=== PATIENT | female | born 1995 | race Caucasian/White ===

== ENCOUNTER 2018-05-27 19:09 | Emergency (ER) | payer OTHER, SELFPAY ==
[2018-05-27 19:14] VITALS: BP 138/93; PULSE 69; RESP 20; TEMP 36.6; O2SAT 98; BMI 21.9
--- NOTE | 2018-05-27 19:33 | ED.ARRPALP ---
HPI - Arrhythmia/Palpitations <JEREMY Sol - Last Filed: 05/27/18 21:03> General Chief Complaint: Arrhythmia/Palpitations Stated Complaint: left arm numbness x3 days Time Seen by Provider: 05/27/18 19:19 Source: patient Mode of arrival: ambulatory Limitations: no limitations History of Present Illness HPI narrative: Patient presents with chief complaint of palpitations. She states she has a history of benign cardiac murmur and has noted episodes of palpitations. One week ago she was running a half marathon and Noticed two episodes of palpitations and fatigue. She states she took several days off and then started running again. Three days ago she was running and noticed palpitations combined with left arm numbness that stopped when she stops running. She felt this again yesterday and felt pins and needles in her left hand while running. She stated that it happened again after she was done running yesterday. She states she felt pins and needles in her left hand today as well this morning and that returned tonight. This prompted her visit to the emergency department today. She states she was going to see a aerospace mechanic after her episodes of palpitations any way but she would to get evaluated today. She denies chance of . She denies any abdominal pain vomiting or diarrhea. She complains of slight nausea. She denies any chest pain. Related Data Home Medications Medication Instructions Recorded Confirmed [ control] #0 08/19/16 ferrous sulfate [Iron (ferrous 325 mg PO QDAY #0 08/19/16 sulfate)] vitamin B complex [B 1 tab PO QDAY #0 08/19/16 Complex-Vitamin B12] Previous Rx's Medication Instructions Recorded omeprazole 20 mg PO BID #28 cap 08/19/16 Allergies Allergy/AdvReac Type Severity Reaction Status Date / Time No Known Drug Allergies Allergy Verified 05/27/18 19:11 Review of Systems <JEREMY Sol - Last Filed: 05/27/18 21:03> Review of Systems GENERAL: Denies chills, fatigue, malaise, fever, sweats. HEENT: Denies sinus pain, ear pain, sore throat, difficulty swallowing, dizziness. RESPIRATORY: Denies dyspnea, cough, wheezing, hemoptysis, sputum. CARDIOVASCULAR: See HPI GASTROINTESTINAL: see HPI : Denies dysuria, frequency, incontinence, hematuria, urinary retention. MUSCULOSKELETAL: denies weakness, joint pain, or bony pain SKIN: Denies rash, skin lesions, or other NEUROLOGIC: Denies weakness, headache, numbness, change in speech, confusion, seizures, incoordination. PSYCHIATRIC: No concerning psychosocial issues. 12 point review of systems is negative except for those stated above Exam <JEREMY Sol - Last Filed: 05/27/18 21:03> Narrative Exam Narrative: GENERAL: This is a well-nourished, well-developed patient, sitting on side of bed Appears anxious. HEAD: Atraumatic. Normocephalic. No temporal or scalp tenderness. EYES: Pupils equal round and reactive. Extraocular motions intact. No scleral icterus. No injection or drainage. ENT: Nose without bleeding, purulent drainage or septal hematoma. Throat without erythema, tonsillar hypertrophy or exudate. Uvula midline. Airway patent. NECK: Trachea midline. No JVD or lymphadenopathy. Supple, nontender, no meningeal signs. CARDIOVASCULAR: Regular rate and rhythm a slight systolic murmur RESPIRATORY: Clear to auscultation. Breath sounds equal bilaterally. No wheezes, rales, or rhonchi. GASTROINTESTINAL: Abdomen soft, non-tender, nondistended. No hepato-splenomegaly, or palpable masses. No guarding. EXTREMITIES: No clubbing, cyanosis, or edema. No joint tenderness, effusion, or edema noted. BACK: Nontender without deformity or crepitance. No flank tenderness. NEURO: AOx3. SKIN: No rash or erythema. Initial Vital Signs Initial Vital Signs: Vital Signs Temperature 97.8 F 05/27/18 19:14 Pulse Rate 69 05/27/18 19:14 Respiratory Rate 20 05/27/18 19:14 Blood Pressure 138/93 H 05/27/18 19:14 Pulse Oximetry 98 05/27/18 19:14 <Harvey Hayes DO - Last Filed: 05/27/18 22:26> Initial Vital Signs Initial Vital Signs: Vital Signs Temperature 97.8 F 05/27/18 19:14 Pulse Rate 69 05/27/18 19:14 Respiratory Rate 20 05/27/18 19:14 Blood Pressure 138/93 H 05/27/18 19:14 Pulse Oximetry 98 05/27/18 19:14 Course <JEREMY Sol - Last Filed: 05/27/18 21:03> Orders Ordered: ED Orders 05/27/18 19:28 EKG-12 Lead Stat 05/27/18 20:15 CBC [Complete Blood Count AUTO DIFF] Stat CMP [Comprehensive Metabolic Panel] Stat Reevaluation(s) Reevaluation #1: patient resting in bed. No apparent distress at this time. Patient denies arm numbness. Time: 20:10 Reevaluation #2: Discussed lab results with patient. Patient still denies current left arm numbness. Discussed with patient that I would like her to receive follow-up regarding her palpitations and associated left arm numbness. Patient appears upset that I do not know the direct cause of her palpitations while she was running last week. Time: 20:50 Vital Signs - 8 hr 05/27/18 19:14 05/27/18 20:49 Temperature 97.8 F Pulse Rate 69 52 L Respiratory Rate 20 14 Blood Pressure 138/93 H Blood Pressure [Left Arm] 117/72 Pulse Oximetry 98 98 <Harvey Hayes DO - Last Filed: 05/27/18 22:26> Orders Ordered: ED Orders 05/27/18 19:28 EKG-12 Lead Stat 05/27/18 20:15 CBC [Complete Blood Count AUTO DIFF] Stat CMP [Comprehensive Metabolic Panel] Stat Vital Signs - 8 hr 05/27/18 19:14 05/27/18 20:49 Temperature 97.8 F Pulse Rate 69 52 L Respiratory Rate 20 14 Blood Pressure 138/93 H Blood Pressure [Left Arm] 117/72 Pulse Oximetry 98 98 MDM - Arrhythmia/Palpitations <JEREMY Sol - Last Filed: 05/27/18 21:03> Differential Diagnosis Differential diagnosis: Likely palpitations, anxiety and ventricular premature beats Lab Data Attestation: I reviewed the patient's lab results. Result diagrams: 05/27/18 20:15 05/27/18 20:15 Lab Results 05/27/18 05/27/18 Range/Units 20:15 20:15 WBC 6.4 (4.5-11.0) X10^3/uL RBC 4.26 (4.0-5.2) X10^6/uL Hgb 13.6 (12.0-16.0) g/dL Hct 39.8 (36-46) % MCV 93.4 (80-100) fL MCH 32.0 (26-34) PG MCHC 34.2 (30-36) % RDW 13.5 (11.6-14.8) % Plt Count 201 (150-400) X10^3/uL Neut % (Auto) 48.8 L (50-75) % Lymph % (Auto) 42.5 H (25-40) % [place] % (Auto) 6.8 (3-14) % Eos % (Auto) 1.6 L (2-4) % Baso % (Auto) 0.3 (0-2) % Neut # (Auto) 3100 (5773-1420) /uL Sodium 142 (137-145) mmol/L Potassium 3.6 (3.4-5.1) mmol/L Chloride 102 (98-107) mmol/L Carbon Dioxide 29 (22-32) mmol/L BUN 16 (7-17) mg/dL Creatinine 0.70 (0.52-1.04) mg/dL Estimated GFR > 60.0 (>60) mL/min BUN/Creatinine Ratio 22.9 H (6-22) Glucose 110 H (70-100) mg/dL Calcium 9.4 (8.4-10.2) mg/dL Total Bilirubin 0.5 (0.2-1.3) mg/dL AST 32 (14-36) IU/L ALT 30 (9-52) IU/L Alkaline Phosphatase 50 (38-126) U/L Total Protein 6.8 (6.3-8.2) g/dL Albumin 4.4 (3.5-5.0) g/dL Globulin 2.4 (1.7-4.1) g/dL Albumin/Globulin Ratio 1.8 (1.0-2.8) Point of Care Testing Test Results Negative Urine Dip Bedside Urine Glucose Negative Bedside Urine Bilirubin - Negative Bedside Urine Ketone - Negative Urine Specific [place] 1.020 Bedside Urine Occult Blood - Negative Bedside Urine pH 7.0 Bedside Urine Protein - Negative Bedside Urine Urobilinogen - Negative Bedside Urine Nitrite - Negative Bedside Urine Leukocytes - Negative Esterase ECG Data Attestation: I personally reviewed and interpreted this ECG as follows: Interpretation: Sinus bradycardia. Ventricular rate 59. no ectopy noted. No ST elevation depression noted. MDM Narrative Medical decision making narrative: Patient presents with chief complaint of palpitations during exercise and transient left pins and needles. She had a normal EKG, normal CBC and CMP. I encouraged her to follow up with her primary care provider, maintain adequate hydration, and use [id number] conservative measures for her arm pain. Given her palpitations and associated left arm numbness, I think she might benefit from Holter monitor. Discussed return precautions to the emergency department. Patient no questions or concerns upon discharge. I gave her copy of her labs as well as a list of local PCPs who are accepting new patients. <Harvey Hayes, DO - Last Filed: 05/27/18 22:26> Lab Data Lab Results 05/27/18 05/27/18 Range/Units 20:15 20:15 WBC 6.4 (4.5-11.0) X10^3/uL RBC 4.26 (4.0-5.2) X10^6/uL Hgb 13.6 (12.0-16.0) g/dL Hct 39.8 (36-46) % MCV 93.4 (80-100) fL MCH 32.0 (26-34) PG MCHC 34.2 (30-36) % RDW 13.5 (11.6-14.8) % Plt Count 201 (150-400) X10^3/uL Neut % (Auto) 48.8 L (50-75) % Lymph % (Auto) 42.5 H (25-40) % [place] % (Auto) 6.8 (3-14) % Eos % (Auto) 1.6 L (2-4) % Baso % (Auto) 0.3 (0-2) % Neut # (Auto) 3100 (5605-2733) /uL Sodium 142 (137-145) mmol/L Potassium 3.6 (3.4-5.1) mmol/L Chloride 102 (98-107) mmol/L Carbon Dioxide 29 (22-32) mmol/L BUN 16 (7-17) mg/dL Creatinine 0.70 (0.52-1.04) mg/dL Estimated GFR > 60.0 (>60) mL/min BUN/Creatinine Ratio 22.9 H (6-22) Glucose 110 H (70-100) mg/dL Calcium 9.4 (8.4-10.2) mg/dL Total Bilirubin 0.5 (0.2-1.3) mg/dL AST 32 (14-36) IU/L ALT 30 (9-52) IU/L Alkaline Phosphatase 50 (38-126) U/L Total Protein 6.8 (6.3-8.2) g/dL Albumin 4.4 (3.5-5.0) g/dL Globulin 2.4 (1.7-4.1) g/dL Albumin/Globulin Ratio 1.8 (1.0-2.8) Point of Care Testing Test Results Negative Urine Dip Bedside Urine Glucose Negative Bedside Urine Bilirubin - Negative Bedside Urine Ketone - Negative Urine Specific [place] 1.020 Bedside Urine Occult Blood - Negative Bedside Urine pH 7.0 Bedside Urine Protein - Negative Bedside Urine Urobilinogen - Negative Bedside Urine Nitrite - Negative Bedside Urine Leukocytes - Negative Esterase Discharge Plan Departure Patient Disposition: Home Clinical Impression: Palpitations Discharge Date/Time: 05/27/18 21:01 Interventions: ED Discharge Assessment Last Done: 05/27/18 20:59 Instructions: DI for Palpitations Activity Restrictions/Additional Instructions: Please follow-up with your primary care provider regarding her palpitations. Your EKG as well as your lab work looks good today. You can use conservative measures for your arm pain including rest ice compression elevation as well as nhmd-zjo-[id number] pain medications as needed and able. Prescriptions: No Action ferrous sulfate [Iron (ferrous sulfate)] 325 MG tablet 325 mg PO QDAY Qty: 0 RF: 0 [ control] Qty: 0 RF: 0 vitamin B complex [B Complex-Vitamin B12] 1 EACH tablet 1 tab PO QDAY Qty: 0 RF: 0 omeprazole 20 MG capsule,delayed release(DR/EC) 20 mg PO BID Qty: 28 RF: 0 <Harvey Hayes DO - Last Filed: 05/27/18 22:26> Cosign ED Attending Marquisature Attestation: I was available for consultation during this patient's emergency department encounter
--- NOTE | 2018-05-27 19:38 | ED_ITS ---
HPI - Arrhythmia/Palpitations <JEREMY Sol - Last Filed: 05/27/18 21:03> General Chief Complaint: Arrhythmia/Palpitations Stated Complaint: left arm numbness x3 days Time Seen by Provider: 05/27/18 19:19 Source: patient Mode of arrival: ambulatory Limitations: no limitations History of Present Illness HPI narrative: Patient presents with chief complaint of palpitations. She states she has a history of benign cardiac murmur and has noted episodes of palpitations. One week ago she was running a half marathon and Noticed two episodes of palpitations and fatigue. She states she took several days off and then started running again. Three days ago she was running and noticed palpitations combined with left arm numbness that stopped when she stops running. She felt this again yesterday and felt pins and needles in her left hand while running. She stated that it happened again after she was done running yesterday. She states she felt pins and needles in her left hand today as well this morning and that returned tonight. This prompted her visit to the emergency department today. She states she was going to see a flanging roll operator after her episodes of palpitations any way but she would to get evaluated today. She denies chance of . She denies any abdominal pain vomiting or diarrhea. She complains of slight nausea. She denies any chest pain. Related Data Home Medications Medication Instructions Recorded Confirmed [ control] #0 08/19/16 ferrous sulfate [Iron (ferrous 325 mg PO QDAY #0 08/19/16 sulfate)] vitamin B complex [B 1 tab PO QDAY #0 08/19/16 Complex-Vitamin B12] Previous Rx's Medication Instructions Recorded omeprazole 20 mg PO BID #28 cap 08/19/16 Allergies Allergy/AdvReac Type Severity Reaction Status Date / Time No Known Drug Allergies Allergy Verified 05/27/18 19:11 Review of Systems <JEREMY Sol - Last Filed: 05/27/18 21:03> Review of Systems GENERAL: Denies chills, fatigue, malaise, fever, sweats. HEENT: Denies sinus pain, ear pain, sore throat, difficulty swallowing, dizziness. RESPIRATORY: Denies dyspnea, cough, wheezing, hemoptysis, sputum. CARDIOVASCULAR: See HPI GASTROINTESTINAL: see HPI : Denies dysuria, frequency, incontinence, hematuria, urinary retention. MUSCULOSKELETAL: denies weakness, joint pain, or bony pain SKIN: Denies rash, skin lesions, or other NEUROLOGIC: Denies weakness, headache, numbness, change in speech, confusion, seizures, incoordination. PSYCHIATRIC: No concerning psychosocial issues. 12 point review of systems is negative except for those stated above Exam <JEREMY Sol - Last Filed: 05/27/18 21:03> Narrative Exam Narrative: GENERAL: This is a well-nourished, well-developed patient, sitting on side of bed Appears anxious. HEAD: Atraumatic. Normocephalic. No temporal or scalp tenderness. EYES: Pupils equal round and reactive. Extraocular motions intact. No scleral icterus. No injection or drainage. ENT: Nose without bleeding, purulent drainage or septal hematoma. Throat without erythema, tonsillar hypertrophy or exudate. Uvula midline. Airway patent. NECK: Trachea midline. No JVD or lymphadenopathy. Supple, nontender, no meningeal signs. CARDIOVASCULAR: Regular rate and rhythm a slight systolic murmur RESPIRATORY: Clear to auscultation. Breath sounds equal bilaterally. No wheezes , rales, or rhonchi. GASTROINTESTINAL: Abdomen soft, non-tender, nondistended. No hepato-splenomegaly , or palpable masses. No guarding. EXTREMITIES: No clubbing, cyanosis, or edema. No joint tenderness, effusion, or edema noted. BACK: Nontender without deformity or crepitance. No flank tenderness. NEURO: AOx3. SKIN: No rash or erythema. Initial Vital Signs Initial Vital Signs: Vital Signs Temperature 97.8 F 05/27/18 19:14 Pulse Rate 69 05/27/18 19:14 Respiratory Rate 20 05/27/18 19:14 Blood Pressure 138/93 H 05/27/18 19:14 Pulse Oximetry 98 05/27/18 19:14 <Harvey Hayes DO - Last Filed: 05/27/18 22:26> Initial Vital Signs Initial Vital Signs: Vital Signs Temperature 97.8 F 05/27/18 19:14 Pulse Rate 69 05/27/18 19:14 Respiratory Rate 20 05/27/18 19:14 Blood Pressure 138/93 H 05/27/18 19:14 Pulse Oximetry 98 05/27/18 19:14 Course <JEREMY Sol - Last Filed: 05/27/18 21:03> Orders Ordered: ED Orders 05/27/18 19:28 EKG-12 Lead Stat 05/27/18 20:15 CBC [Complete Blood Count AUTO DIFF] Stat CMP [Comprehensive Metabolic Panel] Stat Reevaluation(s) Reevaluation #1: patient resting in bed. No apparent distress at this time. Patient denies arm numbness. Time: 20:10 Reevaluation #2: Discussed lab results with patient. Patient still denies current left arm numbness. Discussed with patient that I would like her to receive follow-up regarding her palpitations and associated left arm numbness. Patient appears upset that I do not know the direct cause of her palpitations while she was running last week. Time: 20:50 Vital Signs - 8 hr 05/27/18 19:14 05/27/18 20:49 Temperature 97.8 F Pulse Rate 69 52 L Respiratory Rate 20 14 Blood Pressure 138/93 H Blood Pressure [Left Arm] 117/72 Pulse Oximetry 98 98 <Harvey Hayes DO - Last Filed: 05/27/18 22:26> Orders Ordered: ED Orders 05/27/18 19:28 EKG-12 Lead Stat 05/27/18 20:15 CBC [Complete Blood Count AUTO DIFF] Stat CMP [Comprehensive Metabolic Panel] Stat Vital Signs - 8 hr 05/27/18 19:14 05/27/18 20:49 Temperature 97.8 F Pulse Rate 69 52 L Respiratory Rate 20 14 Blood Pressure 138/93 H Blood Pressure [Left Arm] 117/72 Pulse Oximetry 98 98 MDM - Arrhythmia/Palpitations <JEREMY Sol - Last Filed: 05/27/18 21:03> Differential Diagnosis Differential diagnosis: Likely palpitations, anxiety and ventricular premature beats Lab Data Attestation: I reviewed the patient's lab results. Result diagrams: 05/27/18 20:15 05/27/18 20:15 Lab Results 05/27/18 05/27/18 Range/Units 20:15 20:15 WBC 6.4 (4.5-11.0) X10^3/uL RBC 4.26 (4.0-5.2) X10^6/uL Hgb 13.6 (12.0-16.0) g/dL Hct 39.8 (36-46) % MCV 93.4 (80-100) fL MCH 32.0 (26-34) PG MCHC 34.2 (30-36) % RDW 13.5 (11.6-14.8) % Plt Count 201 (150-400) X10^3/uL Neut % (Auto) 48.8 L (50-75) % Lymph % (Auto) 42.5 H (25-40) % [place] % (Auto) 6.8 (3-14) % Eos % (Auto) 1.6 L (2-4) % Baso % (Auto) 0.3 (0-2) % Neut # (Auto) 3100 (2434-8381) /uL Sodium 142 (137-145) mmol/L Potassium 3.6 (3.4-5.1) mmol/L Chloride 102 (98-107) mmol/L Carbon Dioxide 29 (22-32) mmol/L BUN 16 (7-17) mg/dL Creatinine 0.70 (0.52-1.04) mg/dL Estimated GFR > 60.0 (>60) mL/min BUN/Creatinine Ratio 22.9 H (6-22) Glucose 110 H (70-100) mg/dL Calcium 9.4 (8.4-10.2) mg/dL Total Bilirubin 0.5 (0.2-1.3) mg/dL AST 32 (14-36) IU/L ALT 30 (9-52) IU/L Alkaline Phosphatase 50 (38-126) U/L Total Protein 6.8 (6.3-8.2) g/dL Albumin 4.4 (3.5-5.0) g/dL Globulin 2.4 (1.7-4.1) g/dL Albumin/Globulin Ratio 1.8 (1.0-2.8) Point of Care Testing Test Results Negative Urine Dip Bedside Urine Glucose Negative Bedside Urine Bilirubin - Negative Bedside Urine Ketone - Negative Urine Specific [place] 1.020 Bedside Urine Occult Blood - Negative Bedside Urine pH 7.0 Bedside Urine Protein - Negative Bedside Urine Urobilinogen - Negative Bedside Urine Nitrite - Negative Bedside Urine Leukocytes - Negative Esterase ECG Data Attestation: I personally reviewed and interpreted this ECG as follows: Interpretation: Sinus bradycardia. Ventricular rate 59. no ectopy noted. No ST elevation depression noted. MDM Narrative Medical decision making narrative: Patient presents with chief complaint of palpitations during exercise and transient left pins and needles. She had a normal EKG, normal CBC and CMP. I encouraged her to follow up with her primary care provider, maintain adequate hydration, and use [id number] conservative measures for her arm pain. Given her palpitations and associated left arm numbness, I think she might benefit from Holter monitor. Discussed return precautions to the emergency department. Patient no questions or concerns upon discharge. I gave her copy of her labs as well as a list of local PCPs who are accepting new patients. <Harvey Hayes, DO - Last Filed: 05/27/18 22:26> Lab Data Lab Results 05/27/18 05/27/18 Range/Units 20:15 20:15 WBC 6.4 (4.5-11.0) X10^3/uL RBC 4.26 (4.0-5.2) X10^6/uL Hgb 13.6 (12.0-16.0) g/dL Hct 39.8 (36-46) % MCV 93.4 (80-100) fL MCH 32.0 (26-34) PG MCHC 34.2 (30-36) % RDW 13.5 (11.6-14.8) % Plt Count 201 (150-400) X10^3/uL Neut % (Auto) 48.8 L (50-75) % Lymph % (Auto) 42.5 H (25-40) % [place] % (Auto) 6.8 (3-14) % Eos % (Auto) 1.6 L (2-4) % Baso % (Auto) 0.3 (0-2) % Neut # (Auto) 3100 (5388-1550) /uL Sodium 142 (137-145) mmol/L Potassium 3.6 (3.4-5.1) mmol/L Chloride 102 (98-107) mmol/L Carbon Dioxide 29 (22-32) mmol/L BUN 16 (7-17) mg/dL Creatinine 0.70 (0.52-1.04) mg/dL Estimated GFR > 60.0 (>60) mL/min BUN/Creatinine Ratio 22.9 H (6-22) Glucose 110 H (70-100) mg/dL Calcium 9.4 (8.4-10.2) mg/dL Total Bilirubin 0.5 (0.2-1.3) mg/dL AST 32 (14-36) IU/L ALT 30 (9-52) IU/L Alkaline Phosphatase 50 (38-126) U/L Total Protein 6.8 (6.3-8.2) g/dL Albumin 4.4 (3.5-5.0) g/dL Globulin 2.4 (1.7-4.1) g/dL Albumin/Globulin Ratio 1.8 (1.0-2.8) Point of Care Testing Test Results Negative Urine Dip Bedside Urine Glucose Negative Bedside Urine Bilirubin - Negative Bedside Urine Ketone - Negative Urine Specific [place] 1.020 Bedside Urine Occult Blood - Negative Bedside Urine pH 7.0 Bedside Urine Protein - Negative Bedside Urine Urobilinogen - Negative Bedside Urine Nitrite - Negative Bedside Urine Leukocytes - Negative Esterase Discharge Plan Departure Patient Disposition: Home Clinical Impression: Palpitations Discharge Date/Time: 05/27/18 21:01 Interventions: ED Discharge Assessment Last Done: 05/27/18 20:59 Instructions: DI for Palpitations Activity Restrictions/Additional Instructions: Please follow-up with your primary care provider regarding her palpitations. Your EKG as well as your lab work looks good today. You can use conservative measures for your arm pain including rest ice compression elevation as well as touq-sti-jwkvwnn pain medications as needed and able. Prescriptions: No Action ferrous sulfate [Iron (ferrous sulfate)] 325 MG tablet 325 mg PO QDAY Qty: 0 RF: 0 [ control] Qty: 0 RF: 0 vitamin B complex [B Complex-Vitamin B12] 1 EACH tablet 1 tab PO QDAY Qty: 0 RF: 0 omeprazole 20 MG capsule,delayed release(DR/EC) 20 mg PO BID Qty: 28 RF: 0 <Harvey Hayes DO - Last Filed: 05/27/18 22:26> Cosign ED Attending Marquisature Attestation: I was available for consultation during this patient's emergency department encounter
[2018-05-27 20:19] LABS: Add Manual Diff / Slide Review NO; Basophils Percent Auto 0.3 % (0-2); Eosinophils Percent Auto 1.6 % (2-4); Hematocrit 39.8 % (36-46); Hemoglobin 13.6 g/dL (12.0-16.0); Lymphocytes Percent Auto 42.5 % (25-40); Mean Corpuscular HGB Conc 34.2 % (30-36); Mean Corpuscular Volume 93.4 fL (80-100); Monocytes Percent Auto 6.8 % (3-14); Neutrophils Absolute Auto 3100 /uL (3000-5900); Neutrophils Percent Auto 48.8 % (50-75); Platelet Count 201 X10^3/uL (150-400); Red Blood Cell Count 4.26 X10^6/uL (4.0-5.2); Red Cell Distribution Width 13.5 % (11.6-14.8); White Blood Cell Count 6.4 X10^3/uL (4.5-11.0)
--- NOTE | 2018-05-27 20:26 | PC.NURSE ---
palpatations, skips a beat, lt arm numbness/tingling, occurred during running race, intermittent x1wk after, onset tonight while at rest, denies sx at time of exam, sinus lashawn on monitor, pulses strong/equal, lungs clear/equal, abd nontender, denies cp/soa/nausea/vomiting/diarrhea/dysuria/fever/trauma or other illness
[2018-05-27 20:32] LABS: Alanine Aminotransferase 30 IU/L (9-52); Albumin 4.4 g/dL (3.5-5.0); Albumin Globulin Ratio 1.8 (1.0-2.8); Alkaline Phosphatase 50 U/L (38-126); Aspartate Aminotransferase 32 IU/L (14-36); BUN Creatinine Ratio 22.9 (6-22); Bilirubin Total 0.5 mg/dL (0.2-1.3); Blood Urea Nitrogen 16 mg/dL (7-17); Calcium 9.4 mg/dL (8.4-10.2); Carbon Dioxide 29 mmol/L (22-32); Chloride 102 mmol/L (98-107); Estimated Glomerular Filt Rate > 60.0 mL/min (>60); Globulin 2.4 g/dL (1.7-4.1); Glucose 110 mg/dL (70-100); HEMOLYSIS < 15 (0-50); Potassium 3.6 mmol/L (3.4-5.1); Sodium 142 mmol/L (137-145); Total Protein 6.8 g/dL (6.3-8.2)
[2018-05-27 20:49] VITALS: BP 117/72; PULSE 52; RESP 14; O2SAT 98
--- NOTE | 2018-05-31 17:53 | PC.NURSE ---
Pt feeling good,pt going to follow up with professor of floriculture. Pt has no suggestions for improvments
== END 2018-05-27 21:01 | disposition home or self-care (01) ==
PROVIDERS: Emergency Provider Nurse Practitioner Family; PCP Physician Assistant Medical
DX: R00.2 Palpitations (principal)
CPT/HCPCS: 80053; 81003; 81025; 85025; 93005; 99282; 99284

== ENCOUNTER 2019-08-22 22:02 | Emergency (ER) | payer OTHER, SELFPAY ==
[2019-08-22 22:10] VITALS: BP 117/68; PULSE 97; RESP 17; TEMP 36.4; O2SAT 99; BMI 21.2
--- NOTE | 2019-08-22 23:11 | ED_ITS ---
HPI - Nausea/Vomiting/Diarrhea General Chief complaint: Nausea/Vomiting/Diarrhea Stated complaint: vomiting, diarrhea Time Seen by Provider: 08/22/19 22:05 Source: patient and family Mode of arrival: Family Vehicle Limitations: no limitations History of Present Illness HPI Narrative: 24-year-old female nonsmoker with noncontributory medical history presents with a chief complaint of a sudden onset of nausea with some epigastric cramping and discomfort followed by 1 episode of diarrhea prior to her arrival. She felt tremendous improvement after the vomiting and diarrhea and in fact has minimal symptoms on her presentation. She denies any fever but has had chills ever since she got here. She denies any bad food or recent travel. She was on antibiotics about a month ago but otherwise has little in the way of risk. She has a complaint of a similar episode a few weeks ago which did not have associated vomiting. She denies any family history of the same MD complaint: nausea, vomiting, diarrhea and abdominal pain Onset (ago): hour(s) Description of Vomiting: food contents and resolved Description of Diarrhea: watery and resolved Associated Abdominal Pain: Yes Location of pain: periumbilical Radiation: diffuse Severity: moderate Quality: cramping Pain Consistency: now resolved Relieving factors: none Exacerbating factors: none Associated symptoms: denies other symptoms Related Data Home Medications Medication Instructions Recorded Confirmed [ control] #0 08/19/16 ferrous sulfate [Iron (ferrous 325 mg PO QDAY #0 08/19/16 sulfate)] vitamin B complex [B 1 tab PO QDAY #0 08/19/16 Complex-Vitamin B12] Previous Rx's Medication Instructions Recorded omeprazole 20 mg PO BID #28 cap 08/19/16 ondansetron 4 mg PO TID-QID PRN #10 tab 08/23/19 Allergies Allergy/AdvReac Type Severity Reaction Status Date / Time No Known Drug Allergies Allergy Verified 05/27/18 19:11 Review of Systems Constitutional Constitutional: Denies chills, Denies fatigue, Denies fever(s), Denies frequent falls, Denies lethargy and Denies weakness Eyes Eyes: Denies change in vision, Denies eye discharge, Denies irritation and Denies loss of vision ENT Ears, Nose, Mouth, and Throat: Denies change in voice, Denies dizziness, Denies neck pain, Denies sore throat and Denies throat swelling Cardiovascular Cardiovascular: Denies chest pain, Denies irregular heart rhythm, Denies lightheadedness, Denies palpitations, Denies dyspnea, Denies dyspnea on exertion and Denies orthopnea Respiratory Respiratory: Denies cough, Denies dyspnea, Denies dyspnea on exertion and Denies wheezing Gastrointestinal Gastrointestinal: Reports abdominal pain, Denies change in bowel habits, Reports diarrhea, Reports nausea and Reports vomiting Genitourinary Genitourinary: Denies hematuria, Denies flank pain, Denies urinary incontinence and Denies urinary urgency Musculoskeletal Musculoskeletal: Denies back pain, Denies muscle weakness, Denies neck pain, Denies numbness and Denies tingling Integumentary/Breasts Skin/Breast: Denies pruritus, Denies erythema, Denies rash and Denies wounds Neurologic Neurologic: Denies behavioral changes, Denies confusion, Denies dizziness, Denies frequent falls, Denies loss of vision, Denies numbness, Denies tingling and Denies weakness Psychiatric Psychiatric: Denies anxiety, Denies behavioral changes, Denies confusion, Denies depression, Denies homicidal ideation and Denies suicidal ideation Endocrine Endocrine: Denies fatigue, Denies flushing and Denies palpitations Hematologic/Lymphatic Hematologic/Lymphatic: Denies easy bruising Allergic/Immunologic Allergic/Immunologic: Denies urticaria, Denies throat swelling and Denies wheezing Patient History Social History Smoking Status: Never smoker Smoking Status: Never smoker alcohol intake frequency: holidays/special occasions only Substance Use Type: does not use Exam Narrative Exam Narrative: GENERAL: [24] year old patient appears stated age. Well- nourished, well-developed patient, in mild distress. HEAD: Atraumatic. Normocephalic. EYES: Pupils equal round and reactive. Extraocular motions intact. No scleral icterus. No injection or drainage. ENT: Nose without bleeding, purulent drainage. Throat without erythema, tonsillar hypertrophy or exudate. Airway patent. NECK: Trachea midline. Non tender CARDIOVASCULAR: Regular rate and rhythm without murmurs, gallops, or rubs. RESPIRATORY: Clear to auscultation. Breath sounds equal bilaterally. No wheezes, rales, or rhonchi. GASTROINTESTINAL: Abdomen soft, non-tender, nondistended. EXTREMITIES: No edema or joint tenderness. BACK: Nontender without deformity or crepitance. No flank tenderness. NEURO: AOx3. SKIN: No rash or erythema of visible areas Initial Vital Signs Initial Vital Signs: Vital Signs Temperature 97.6 F 08/22/19 22:10 Pulse Rate 97 H 08/22/19 22:10 Respiratory Rate 17 08/22/19 22:10 Blood Pressure 117/68 08/22/19 22:10 Pulse Oximetry 99 08/22/19 22:10 Course Orders Ordered: ED Orders 08/22/19 23:30 XR acute abdomen series Stat Ictotest Urine Stat Urine Microscopic Stat 08/22/19 23:46 Complete Blood Count AUTO DIFF Stat Comprehensive Metabolic Panel Stat Discontinued Medications Sodium Chloride (Normal Saline 0.9%) 1,000 mls @ 1,000 mls/hr IV BOLUS ONE Stop: 08/23/19 00:27 Last Admin: 08/22/19 23:50 Dose: 1,000 mls/hr Documented by: ALESHIA Ondansetron HCl (Zofran) 4 mg IV NOW ONE Stop: 08/22/19 23:29 Last Admin: 08/22/19 23:50 Dose: 4 mg Documented by: ALESHIA Ondansetron HCl (Zofran Odt Prepack) 1 bottle MISC SEEINSTR ONE Stop: 08/23/19 00:18 Last Admin: 08/23/19 00:25 Dose: 1 bottle Documented by: ALESHIA Vital Signs Vital signs: Vital Signs - 8 hr 08/22/19 22:10 Temperature 97.6 F Pulse Rate 97 H Respiratory Rate 17 Blood Pressure 117/68 Pulse Oximetry 99 MDM - Nausea/Vomiting/Diarrhea Lab Data Result diagrams: 08/22/19 23:46 08/22/19 23:46 Labs: Lab Results 08/22/19 08/22/19 08/22/19 Range/Units 23:30 23:46 23:46 WBC 10.2 (4.5-11.0) X10^3/uL RBC 4.93 (4.0-5.2) X10^6/uL Hgb 15.5 (12.0-16.0) g/dL Hct 45.2 (36-46) % MCV 91.7 (80-100) fL MCH 31.4 (26-34) PG MCHC 34.2 (30-36) % RDW 13.2 (11.6-14.8) % Plt Count 198 (150-400) X10^3/uL Neut % (Auto) 88.2 H (50-75) % Lymph % (Auto) 6.5 L (25-40) % [place] % (Auto) 4.5 (3-14) % Eos % (Auto) 0.5 L (2-4) % Baso % (Auto) 0.3 (0-2) % Neut # (Auto) 9000 H (6842-0097) /uL Lymph # (Auto) 700 L (6527-7970) /uL [place] # (Auto) 500 (0-900) /uL Eos # (Auto) 100 (0-450) /uL Baso # (Auto) 0 (0-100) /uL Sodium 136 L (137-145) mmol/L Potassium 4.0 (3.4-5.1) mmol/L Chloride 101 (98-107) mmol/L Carbon Dioxide 25 (22-32) mmol/L BUN 18 H (7-17) mg/dL Creatinine 0.60 (0.52-1.04) mg/dL Estimated GFR > 60.0 (>60) mL/min BUN/Creatinine Ratio 30.0 H (6-22) Glucose 105 H (70-100) mg/dL Calcium 9.3 (8.4-10.2) mg/dL Total Bilirubin 0.8 (0.2-1.3) mg/dL AST 26 (14-36) IU/L ALT 16 (<35) IU/L Alkaline Phosphatase 71 (38-126) U/L Total Protein 7.2 (6.3-8.2) g/dL Albumin 4.6 (3.5-5.0) g/dL Globulin 2.6 (1.7-4.1) g/dL Albumin/Globulin Ratio 1.8 (1.0-2.8) Urine Ictotest Negative (Negative) Urine RBC None seen (0-5/HPF) Urine WBC 1-5/hpf (0-5/HPF) Ur Squamous Epith Cells >30 /hpf H (0-5/HPF) Urine Bacteria Many (>30) H (None) Ur Culture Indicated? Cult not indicated Micro UA Comment * Point of Care Testing Test Results Negative Urine Dip Bedside Urine Glucose Negative Bedside Urine Bilirubin + 1 Bedside Urine Ketone ++ 40 Urine Specific [place] 1.015 Bedside Urine Occult Blood - Negative Bedside Urine pH 6.0 Bedside Urine Protein + 30 Bedside Urine Urobilinogen +/- 1mg Bedside Urine Nitrite - Negative Bedside Urine Leukocytes + 70 Esterase Imaging Data Abdominal x-ray: Radiologist's Impression: Nonspecific bowel gas pattern MDM Narrative Medical decision making narrative: Multiple etiologies for patient's symptoms considered including: [Enteritis versus gastroenteritis versus UTI versus bowel obstruction versus other] Patient's symptoms improved or duration of stay with above-stated therapies. Findings and discharge diagnosis discussed with patient/family followed by verbalization of understanding Return precautions discussed with patient/family whom verbalize understanding. Discharge Plan Departure Patient Disposition: Home Clinical Impression: Gastroenteritis Activity Restrictions/Additional Instructions: *You have been diagnosed with [UTI, resolved nausea, vomiting and diarrhea] *What to do: *Take medications as directed *Follow up with your primary care provider in 2-3 days, call for an appointment. Let them know you were seen in the Emergency Department and that we ask that you be seen in follow up *Return to ER if you should have any new, worsening or concerning symptoms Prescriptions: New ondansetron 4 mg tablet,disintegrating 4 mg PO TID-QID PRN (Reason: nausea and vomiting) Qty: 10 RF: 0 No Action ferrous sulfate [Iron (ferrous sulfate)] 325 MG tablet 325 mg PO QDAY Qty: 0 RF: 0 [ control] Qty: 0 RF: 0 vitamin B complex [B Complex-Vitamin B12] 1 EACH tablet 1 tab PO QDAY Qty: 0 RF: 0 omeprazole 20 MG capsule,delayed release(DR/EC) 20 mg PO BID Qty: 28 RF: 0 Referrals: Nadia Chaudhry PA-C [Primary Care Provider] -
--- NOTE | 2019-08-22 23:30 | DI.RAD.S_ITS ---
PROCEDURE: XR ACUTE ABDOMEN SERIES INDICATIONS: Abdominal pain TECHNIQUE: One view chest and two views of the abdomen were acquired. COMPARISON: None. FINDINGS: Surgical changes and devices: None. Chest: Lungs are clear. Heart size is normal. No pleural effusions. No pneumoperitoneum. Abdomen: Mildly distended, gas-filled small intestine is seen in the left upper quadrant. There is relative paucity of distal small bowel gas and colonic gas. No suspicious calcifications. The liver appears mildly enlarged. Bones: No suspicious bony lesions. IMPRESSION: 1. Nonspecific bowel gas pattern. No exclude early small bowel obstruction. 2. Mild hepatomegaly. Dictated by: Jose Wong M.D. on 08/23/2019 at 8:46 Approved by: Jose Wong M.D. on 08/23/2019 at 8:49
[2019-08-22] MEDS: SODIUM CHLORIDE 0.9% 1,000 ML 1000 ML IV (23:50)
[2019-08-22] MEDS: ONDANSETRON 4 MG/2 ML INJ IV (23:50)
[2019-08-22 23:57] LABS: RBC Urine None Seen (0-5/HPF)
[2019-08-22 23:57] LABS: Add Manual Diff / Slide Review NO; Basophils Absolute Auto 0 /uL (0-100); Basophils Percent Auto 0.3 % (0-2); Eosinophils Absolute Auto 100 /uL (0-450); Eosinophils Percent Auto 0.5 % (2-4); Hematocrit 45.2 % (36-46); Hemoglobin 15.5 g/dL (12.0-16.0); Lymphocytes Absolute Auto 700 /uL (1100-4500); Lymphocytes Percent Auto 6.5 % (25-40); Mean Corpuscular HGB Conc 34.2 % (30-36); Mean Corpuscular Hemoglobin 31.4 PG (26-34); Mean Corpuscular Volume 91.7 fL (80-100); Monocytes Absolute Auto 500 /uL (0-900); Monocytes Percent Auto 4.5 % (3-14); Neutrophils Absolute Auto 9000 /uL (1500-7000); Neutrophils Percent Auto 88.2 % (50-75); Platelet Count 198 X10^3/uL (150-400); Red Blood Cell Count 4.93 X10^6/uL (4.0-5.2); Red Cell Distribution Width 13.2 % (11.6-14.8); White Blood Cell Count 10.2 X10^3/uL (4.5-11.0)
[2019-08-23 00:04] LABS: Alanine Aminotransferase 16 IU/L (<35); Albumin 4.6 g/dL (3.5-5.0); Albumin Globulin Ratio 1.8 (1.0-2.8); Alkaline Phosphatase 71 U/L (38-126); Aspartate Aminotransferase 26 IU/L (14-36); Bilirubin Total 0.8 mg/dL (0.2-1.3); Blood Urea Nitrogen 18 mg/dL (7-17); Calcium 9.3 mg/dL (8.4-10.2); Carbon Dioxide 25 mmol/L (22-32); Chloride 101 mmol/L (98-107); Estimated Glomerular Filt Rate > 60.0 mL/min (>60); Globulin 2.6 g/dL (1.7-4.1); Glucose 105 mg/dL (70-100); HEMOLYSIS < 15 (0-50); Sodium 136 mmol/L (137-145); Total Protein 7.2 g/dL (6.3-8.2)
[2019-08-23 00:13] LABS: Bacteria Urine Many (>30); Ictotest Urine Negative (Negative); Squamous Epithelial Cell Urine >30 /HPF (0-5/HPF); WBC Urine 1-5/HPF (0-5/HPF)
[2019-08-23 00:14] LABS: Culture Indicated Urine Cult Not Indicated
[2019-08-23] MEDS: ONDANSETRON 4 MG ODT PREPACK 1 BOTTLE MISC (00:25)
[2019-08-23 00:43] VITALS: BP 116/62; PULSE 75
== END 2019-08-23 00:44 | disposition home or self-care (01) ==
PROVIDERS: Emergency Provider Emergency Medicine; Family Provider Physician Assistant Medical; PCP Physician Assistant Medical
DX: K52.9 Noninfective gastroenteritis and colitis, unspecified (principal); N39.0 Urinary tract infection, site not specified
CPT/HCPCS: 36415; 74022; 80053; 81003; 81015; 81025; 85025; 99284; J2405